=== PATIENT | male | born 1980 | race Caucasian/White ===

== ENCOUNTER 2017-01-07 21:52 | Inpatient (IN) | payer OTHER ==
[~2017-01-07] VITALS: Ht 190.5 cm; Wt 90.3 kg
[2017-01-07 22:00] VITALS: BP 147/102
--- NOTE | 2017-01-07 22:12 | NUR ---
RECEIVED A 36 YEAR OLD MALE IN RM 1T BIB [facility] C/O ALOC. PER MEDIC, PT FOUND WITH A BELT AROUND HIS NECK BY SISTER 10 BAND TIER IN THE CLOSET AFTER HE ATTEMPTED TO HANG HIMSELF. UPON ARRIVAL TO ED, PT WAS BAGGED MASK. PT IN DECORICATE POSITION AND RESPONSE TO STERNAL RUB.
[2017-01-07 22:28] LABS: BASOPHIL % 0.5 % (0-2); CALCIUM 7.5 mg/dL (8.5-10.1); CARBON DIOXIDE 23.1 mmol/L (21-32); CHLORIDE SERUM 107 mmol/L (98-107); CREATININE SERUM 0.9 mg/dL (0.7-1.3); GFR1 > 60 mL/min; GLUCOSE SERUM 133 mg/dL (74-106); PLATELET COUNT 299 x10^3mcL (130-400); POTASSIUM SERUM 3.3 mmol/L (3.5-5.1); RED CELL DISTRIBUTION WIDTH 13.2 % (11.5-14.5); SODIUM SERUM 145 mmol/L (136-145)
--- NOTE | 2017-01-07 22:31 | NUR ---
TITRATED PROPROFOL TO 30 MCG.
[2017-01-07 22:32] LABS: AMPHETAMINE QUAL UR NONE DETECTED (NEG <=1000)
[2017-01-07 22:34] LABS: ALBUMIN 4.1 g/dL (3.4-5.0); ALKALINE PHOSPHATASE 71 U/L (46-116); ALT/SGPT 197 U/L (16-63); AST/SGOT 105 U/L (15-37); BILIRUBIN TOTAL 0.94 mg/dL (0.20-1.00); CHOLESTEROL 175 mg/dL (<200); TOTAL PROTEIN, SERUM 7.2 g/dL (6.4-8.2)
--- NOTE | 2017-01-07 22:49 | NUR ---
CODE BRAIN. PAGED CT.
--- NOTE | 2017-01-07 22:51 | NUR ---
PT TAKEN TO CT VIA RRANGEL.
--- NOTE | 2017-01-07 23:00 | NUR ---
ROSALIA KOWALSKI ACCOMPANYING PT TO CT WITH RT FOR CONTINUED PT CARE AND SAFETY.
--- NOTE | 2017-01-07 23:17 | NUR ---
PT RETURNED TO RM 1T FROM CT WITHOUT INCIDENCE.
--- NOTE | 2017-01-07 23:18 | NUR ---
PT MOTHER AT BEDSIDE.
--- NOTE | 2017-01-07 23:44 | NUR ---
PT MOTHER AND SISTER AT BEDSIDE. PT SHOWING INCREASED AGITATION WITH MOVEMENT OF THE THE TAISHA ARMS AND LEGS. BP IS ADEQUATE. SEDATION INCREASED BY 5 MCG/KG/MIN TO 35.
--- NOTE | 2017-01-07 23:51 | NUR ---
PRESSURE NOTED TO BE DROPPING, NOW 109/68. PRESSURE ADEQUATE, BUT SIGNIFICANTLY LOWER THAN PRIOR TO MED INCREASE. MEDICATION RE-TITRATED TO 30 MCG/KG/MIN.
[2017-01-08] VITALS (15 sets, daily range): BP systolic 106–140; BP diastolic 60–102
--- NOTE | 2017-01-08 00:07 | NUR ---
RETURN OF PT AGITATION WITH GROSS MOVEMENTS OF ARMS AND LEGS. SEDATION INCREASED. BP NOTED TO BE 108/82. DR LUONG CONSULTED RE FLUID ADMINISTRATION.
--- NOTE | 2017-01-08 00:15 | NUR ---
PATIENT AGITATION NOTED TO BE INCREASING. SEDATION INCREASED TO 35 AND THENN 40 MCG/KG/MIN. FLUID ORDER REC'D FROM DR LUONG FOR A 50 ML NS BOLUS. FLUID BOLUS INITIATED.
--- NOTE | 2017-01-08 00:38 | NUR ---
PT AGITATED, SAT UPRIGHT AND DISLODGED O2 TUBING AND OXYGEN DECREASED TO 93%. DR LUONG MADE AWARE.
--- NOTE | 2017-01-08 00:52 | NUR ---
PT NOW RECLINED IN GURNEY WITH MINIMAL MOVEMENTS. CHEST RISE AND FALL IS VISIBLE. PT REMAINS INTUBATED AND VENTILATED. FAMILY AT BEDSIDE.
--- NOTE | 2017-01-08 01:30 | NUR ---
PER DR LUONG, PT MEDICALLY CLEARED FROM C COLLAR. COLLAR REMOVED. PER RESULTS OF CTAND REQUEST FO DR LUONG, ETT ADVANCED BY RT 3 CM.
--- NOTE | 2017-01-08 02:25 | NUR ---
RECEIVED REPORT FROM ROSALIA SULLIVAN. ALL QUESTIONS AND CONCERNS ADDRESSED AT THIS TIME.
--- NOTE | 2017-01-08 02:27 | NUR ---
REPORT GIVEN TO ROSALIA HEART TO ASSUME CARE.
--- NOTE | 2017-01-08 02:57 | NUR ---
PT ARRIVED TO ICU. PT MAGALI BY GATE PERSON, EMT AND RT BY JULIA. PT WAS TRANSFERED TO ICU BED 1 BY DRAW SHEET. PT IS ON 4 POINT RESISTANTS. +CSM. IVS - R AC 18G AND L HAND 22G. PROPOFOL RUNNING AT 50MCG. ETT IN PLACE, SIZE 7.5 AND LL 25. VENT SETTINGS AT AC MODE RATE 14, VT 600, AND FIO2 40. FC IN PLACE AND DRAINING TO GRAVITY. WILL CONTINUE TO MONIOTR.
--- NOTE | 2017-01-08 04:22 | NUR ---
HEARING SPECIALIST AT BEDSIDE FOR BLOOD DRAW AND URINE SPECIMEN TAKEN.
--- NOTE | 2017-01-08 04:25 | NUR ---
METAL GAUGE MAKER AT BEDSIDE FOR NGT PLACEMENT VERIFICATION
[2017-01-08 04:59] LABS: BASOPHIL % 0.3 % (0-2); PLATELET COUNT 272 x10^3mcL (130-400); RED CELL DISTRIBUTION WIDTH 13.3 % (11.5-14.5)
[2017-01-08 05:02] LABS: ALBUMIN 3.9 g/dL (3.4-5.0); CARBON DIOXIDE 27.8 mmol/L (21-32); CHLORIDE SERUM 110 mmol/L (98-107); CREATININE SERUM 0.8 mg/dL (0.7-1.3); GFR1 > 60 mL/min; GLUCOSE SERUM 109 mg/dL (74-106); POTASSIUM SERUM 3.7 mmol/L (3.5-5.1); SODIUM SERUM 148 mmol/L (136-145)
[2017-01-08 05:13] LABS: T3 TOTAL 1.06 ng/mL
[2017-01-08 05:18] LABS: FREE T4 0.84 ng/dL (0.76-1.46); FREE THYROXINE INDEX 2.1 ug/dL (1.4-4.5); T4(THYROXINE) 5.8 ug/dL (4.7-13.3)
[2017-01-08 05:41] LABS: microscopic required? YES; urine erythrocyte 2+ (NEGATIVE)
[2017-01-08 05:44] LABS: PHOSPHOROUS 3.7 mg/dL (2.5-4.9)
--- NOTE | 2017-01-08 05:46 | NUR ---
DR DENNY AT BEDSIDE. UPDATES GIVEN.
[2017-01-08 05:52] LABS: CHOLESTEROL/HDL RATIO 1.9
--- NOTE | 2017-01-08 06:45 | NUR ---
XRAY CALLED TO VERIFY IF ETT NEED TO BE ADVANCED. NO ONE ANSWERED.
--- NOTE | 2017-01-08 07:16 | NUR ---
BEDSIDE REPORT GIVEN TO ROSALIA CHAPA. ALL QUESTIONS AND CONCERNS ADDRESSED AT THIS TIME. ALL CARE WAS ENDORSE.
--- NOTE | 2017-01-08 07:18 | NUR ---
RECEIVED REPORT FROM DANITA LINDSEY.
--- NOTE | 2017-01-08 07:30 | NUR ---
PT IS INTUBATED AND SEDATED ON PROPOFOL @ 40 MCG/KG/MIN TO MRSS = 3. PT RESPONDS TO VOICE AND CAN FOLLOW COMMANDS. PUPILS ARE 3MM SLUGG[place] BILATERALLY. SIZE 7.5 ETT INTACT AND SECURED, 25 @ LL. ETT TO VENT, AC MODE: RATE 14, TV 600, PEEP 0, FIO2 40%. BREATHING IS EVEN AND UNLABORED. LUNG SOUNDS ARE CLEAR BILATERALLY. NSR. S1 S2 HEART SOUNDS AUSCULTATED. PULSES ARE STRONG X4. CAP REFILL < 3 S. SKINS IS WARM AND CASTRO. NO EDEMA NOTED. OGT INTACT AND SECURED, TO LIS. PT IS NPO AT THIS TIME. ABD IS SOFT AND FLAT. BOWEL SOUNDS ACTIVE X4Q. GUZMÁN INTACT AND DRAINING VIA GRAVITY. HAZY YELLOW URINE, ADEQUATE OUTPUT. R AC IV INTACT, PATENT, DRESSING CDI, INFUSING NS @ 120 CC/HR. L HAND IV INTACT, PATENT, DRESSING CDI. PT DENIES PAIN AT THIS TIME. NO DISTRESS NOTED. ASSISTED PT IN REPOSITIONING. ORAL CARE DONE. HOB ELEVATED, BED LOW, SIDE RAILS UP X3, CALL LIGHT IN REACH. WILL CONTINUE TO MONITOR.
--- NOTE | 2017-01-08 09:00 | NUR ---
ALL RESTRAINTS REMOVED. PT IS CALM AND COOPERATIVE, DENIES INTENT TO INFLICT HARM TO SELF OR OTHERS AT THIS TIME.
--- NOTE | 2017-01-08 10:13 | NUR ---
ETT ADVANCED TO 28 @ LL VIA RT.
--- NOTE | 2017-01-08 10:18 | NUR ---
1005 ADVANCED ETT TO 28 @ LL. 1010 FIO2 TITRATED TO 30%.
--- NOTE | 2017-01-08 12:02 | NUR ---
DR SIMS AT BEDSIDE AND ASSESSED PT. UPDATED ON PT STATUS, QUESTIONS ANSWERED. ORDERS RECEIVED. PT CHANGED TO CPAP: TV 600, PEEP 5, PSV 10, FIO2 30%. PROPOFOL SUSPENDED AT THIS TIME.
--- NOTE | 2017-01-08 12:45 | NUR ---
VANESSA MÉNDEZ AT BEDSIDE FOR ABG AND WEANING PARAMETERS. TO BE PAGED WITH RESULTS. WILL CONTINUE TO MONITOR.
--- NOTE | 2017-01-08 12:54 | NUR ---
RECEIVED REPORT FROM EDUARD LINDSEY, ALL QUESTIONS AND CONCERNS ADDRESSED AT THIS TIME. WILL ASSUME ALL CARE.
--- NOTE | 2017-01-08 13:00 | NUR ---
VANESSA RT ON TELEPHONE WITH DR SIMS ADVISIGN OF ABG AND WEANING PARAMETERS.
--- NOTE | 2017-01-08 13:10 | NUR ---
VANESSA RT AT BEDSIDE TO EXTUBATE PT, PT EXTUBATED AT THIS TIME AND 2L NC PLACED ON PT. WILL CONTINUE TO MONITOR PT AT THIS TIME. PT DENIES FEELING SOB, NO STRIDOR AUSCULTATED.
--- NOTE | 2017-01-08 16:26 | NUR ---
DR. ESPARZA AT BEDSIDE. H & P PROVIDED. TO ASSESS PT FOR 5150 HOLD.
--- NOTE | 2017-01-08 17:00 | NUR ---
FINISHED ASSESSMENT OF PT 5150 STATUS AND PER PT DOES NOT MEET CRITERIA. MADE AWARE. WILL CONTINUE TO MONITOR PT AT THIS TIME.
--- NOTE | 2017-01-08 19:49 | NUR ---
RECEVIED BEDSIDE REPORT FROM ROSALIA LERMA. ALL QUESTIONS AND CONCERNS ADDRESSED AT THIS TIME. PT IS IN ICU BED 1 IN SEMI FOWLERS. PT IA AA0X4 EYES OPENING SPONTANEUSLY AND SPEECH IS CLEAR. FULL ACTIVE ROM. PT ON 2L VIA NC. IVS - L HAND AND R AC PATENT AND FLUSHING WELL. PT SHOW NO SIGNS OF ACUTE DISTRESS. WILL CONTINUE TO MONITOR. BED LEFT IN LOWEST POSITION AND CALL LIGHT IN REACH. FAMILY AT BEDSIDE.
--- NOTE | 2017-01-09 01:00 | NUR ---
DR CARVAJAL AT BEDSIDE. UPDATES GIVEN.
[2017-01-09 03:30] VITALS: BP 117/55
--- NOTE | 2017-01-09 03:44 | NUR ---
DR CARVAJAL AT BEDSIDE AND UPDATES GIVEN.
--- NOTE | 2017-01-09 04:33 | NUR ---
HR ADMINISTRATIVE ASSISTANT AT BEDSIDE FOR LAB DRAW.
[2017-01-09 05:07] LABS: PLATELET COUNT 286 x10^3mcL (130-400); RED CELL DISTRIBUTION WIDTH 13.1 % (11.5-14.5)
[2017-01-09 05:08] LABS: BASOPHIL % 0 % (0-2)
[2017-01-09 05:15] LABS: CALCIUM 9.1 mg/dL (8.5-10.1); CARBON DIOXIDE 25.2 mmol/L (21-32); CHLORIDE SERUM 105 mmol/L (98-107); CREATININE SERUM 0.9 mg/dL (0.7-1.3); GFR1 > 60 mL/min; GLUCOSE SERUM 187 mg/dL (74-106); MAGNESIUM 1.9 mg/dL (1.8-2.4); PHOSPHOROUS 2.4 mg/dL (2.5-4.9); POTASSIUM SERUM 3.7 mmol/L (3.5-5.1); SODIUM SERUM 139 mmol/L (136-145)
--- NOTE | 2017-01-09 05:48 | NUR ---
DR HWANG AT BEDSIDE. UPDATES GIVEN. ALL QUESTIONS AND CONCERNS ADDRESSED AT THIS TIME.
--- NOTE | 2017-01-09 07:09 | NUR ---
BEDSIDE REPORT GIVEN TO ROSALIA CHAPA. ALL QUESTIONS AND CONCERNS ADDRESSED AT THIS TIME. ALL CARE WAS ENDORSED.
--- NOTE | 2017-01-09 07:21 | NUR ---
RECEIVED REPORT FROM DANITA LINDSEY.
[2017-01-09 07:45] VITALS: BP 100/63
--- NOTE | 2017-01-09 08:04 | NUR ---
GUZMÁN CATHETER REMOVED. BALLOON DEFLATED BEFORE REMOVAL, PT TOLERATED WELL.
--- NOTE | 2017-01-09 09:08 | NUR ---
DR CARRASQUILLO AND RESIDENTS ON UNIT ROUNDING. UPDATED ON PT STATUS, PT SEEN. PT TO BE TRANSFERRED UPSTAIRS TODAY.
--- NOTE | 2017-01-09 09:08 | NUR ---
PATIENT ROUNDS WITH DR. MARSH AND RESIDENTS. CHARGE NURSE AND PRIMARY NURSE AT BEDSIDE. POC DISCUSSED. UPDATES PROVIDED. WILL CONTINUE TO MONITOR.
[2017-01-09 10:13] VITALS: Ht 190.5 cm; Wt 90.3 kg
--- NOTE | 2017-01-09 11:17 | NUR ---
REPORT GIVEN TO CLINTON LINDSEY. WILL EAMON PT VIA WHEELCHAIR.
[2017-01-09 11:45] VITALS: BP 133/52
--- NOTE | 2017-01-09 11:45 | NUR ---
RECEIVED FROM ICU AWAKE, ALERT A ND ORIENTED. NO ACUTE RESP. DISTRESS NOTED. VS STABLE. HL X2 PATENT. PT DENIES PAIN OR DISCOMFORT AT THIS TIME. ORIENTED TO ROOM. CALL LIGHT WITHIN REACH. WILL CONTINUE W/PLAN OF CARE.
--- NOTE | 2017-01-09 12:00 | NUR ---
RECIVED PT FROM ICU, PT A/O X4, IV LAC INTACT AND PATENT,HEPLOCK. PT DENIES ANY ACUTE RESP DISTRESS OR DISCOMFORT AT THIS TIME. LUNG SOUNDS ARE CLEAR ON 97 ROOM AR. BOWEL SOUNDS ARE ACTIVE IN ALL FOUR QUADS. PT IS RESTING IN BED WATCHING TV WITH FAMILY BY HIS SIDE. BED IN LOW POSITION, CALL LIGHT IN REACH, WILL CONTINUE PLAN OF CARE.
[2017-01-09] MEDS ORDERED: MEDDP PO (12:33)
[2017-01-09] MEDS ORDERED: CEL20 PO (12:33)
[2017-01-09] MEDS ORDERED: ATIVAN0.5 M1 PO (12:48)
[2017-01-09 13:13] VITALS: BP 133/52
--- NOTE | 2017-01-09 13:45 | NUR ---
GAVE PNEUMOCOCCAL VACCINE, TOLERATED WELL.
[2017-01-09 14:22] VITALS: BP 133/67
--- NOTE | 2017-01-09 15:08 | NUR ---
EXPLAINED DC INSTRUCTIONS TO PT, ALL DC PAPER WORK SIGNED, HEPLOCK AND TELE REMOVED. PT HAS NO ACUTE RESP DISTRESS OR DISCOMFORT NOR PAIN AT THIS TIME. VITAL SIGNS STABE AND READY TO LEAVE WITH FAMILY BY HIS BEDSIDE.
== END 2017-01-09 15:35 | disposition home or self-care (01) | DRG 922 ==
LOC: ED 21:52 → DU 01-08 01:47 → IC 01-08 01:47 → DU 01-09 11:35
PROVIDERS: Anesthesiology; Emergency Medicine; Family Medicine; ADMIT Family Medicine
PROC: 5A1935Z Respiratory Ventilation, Less than 24 Consecutive Hours (ICD-10-PCS; principal; 2017-01-08)
PROC: 0BH17EZ Insertion of Endotracheal Airway into Trachea, Via Natural or Artificial Opening (ICD-10-PCS; 2017-01-08)
DX: T71.162A Asphyxiation due to hanging, intentional self-harm, initial encounter (principal); J96.01 Acute respiratory failure with hypoxia; G92 Toxic encephalopathy; R45.851 Suicidal ideations; E87.4 Mixed disorder of acid-base balance; F10.129 Alcohol abuse with intoxication, unspecified; F10.10 Alcohol abuse, uncomplicated; F43.20 Adjustment disorder, unspecified; E87.6 Hypokalemia; N20.0 Calculus of kidney; Z68.23 Body mass index [BMI] 23.0-23.9, adult
CPT/HCPCS: 36600; 80307; 83880; 84439; 90732; A4628; C9113; G0480; J0330; J1100; J2060; J2270; J2405; J2704; J2930; J3480; J3490; J7030; J7620; J7633; Q0092; Q9967